=== PATIENT | female | born 1950 ===

== ENCOUNTER 2022-04-09 00:16 | Inpatient (IN) | payer OTHER ==
[~2022-04-09] VITALS: Ht 154.9 cm; Wt 54.0 kg
--- NOTE | 2022-04-09 00:30 | NUR ---
Patient BIB [facility] from home for generalized weakness x 3 days and c/o right sided kidney pain. Patient is a leukemia pt, had blood transfusion on last Monday at [facility].
[2022-04-09] MEDS ORDERED: IV NORMAL SALINE 1000 ML BAG IV ONE (01:00)
[2022-04-09] MEDS ORDERED: VANCOMYCIN IV 1,000 MG in IV DEXTROSE 5% 250 ML IV ONE (01:00)
[2022-04-09] MEDS ORDERED: PIPERACILLIN SODIUM/TAZOBACTAM 3.375 G in IV DEXTROSE 5% 50 ML IV ONE (01:00)
--- NOTE | 2022-04-09 01:13 | NUR ---
Kaityay done c/o tech.
--- NOTE | 2022-04-09 01:30 | NUR ---
Tara crawley) at bedside.
[2022-04-09 01:48] LABS: HEMATOCRIT 23.6 % (31.2-41.9); MEAN CORPUSCULAR VOLUME 86.6 fL (75.5-95.3); PLATELET COUNT (AUTO) 98 K/uL (179-408)
[2022-04-09 01:52] LABS: CARBON DIOXIDE 20 mmol/L (21-32); CHLORIDE 92 mmol/L (98-107); GLUCOSE 137 mg/dL (74-106); UREA NITROGEN, BLOOD 25 mg/dL (7-18)
[2022-04-09] MEDS ORDERED: PIPERACILLIN/TAZOBACTAM/D5W 50 ML IV ONE ×2 (01:53→05:39)
[2022-04-09] MEDS ORDERED: VANCOMYCIN IV 200 ML ONE (01:53)
[2022-04-09] MEDS ORDERED: IV NS 1000 ML 1,000 ML IV ONE (02:00)
[2022-04-09 02:01] LABS: ALANINE AMINOTRANSFERASE 172 U/L (14-59); ALKALINE PHOSPHATASE 709 U/L (50-136); ASPARTATE AMINOTRANSFERASE 113 U/L (15-37); BILIRUBIN,DIRECT 1.2 mg/dL (0.0-0.2); BILIRUBIN,TOTAL 2.2 mg/dL (0.2-1.0); TOTAL PROTEIN, SERUM 6.2 g/dL (6.4-8.2)
--- NOTE | 2022-04-09 02:12 | NUR ---
Ambulated to bathroom with assistance, steady gait.
--- NOTE | 2022-04-09 02:25 | NUR ---
Urine sent to lab.
[2022-04-09] MEDS ORDERED: CHOLECALCIFEROL 1,000 UNIT TABLET ONE (02:31)
[2022-04-09] MEDS: CHOLECALCIFEROL 1,000 UNIT TABLET PO SCH ×2 (02:32→09:35)
--- NOTE | 2022-04-09 02:40 | NUR ---
Tara (niece) left contact number [phone] and requested her for an update regarding to her aunt's condition.
--- NOTE | 2022-04-09 02:48 | NUR ---
Called [facility], spoke with Deidra.
--- NOTE | 2022-04-09 02:55 | NUR ---
US tech at bedside.
[2022-04-09 03:09] LABS: *BILIRUBIN,URIN NEGATIVE (NEGATIVE); *BLOOD, URINE NEGATIVE (NEGATIVE); *CLARITY,URINE CLEAR (CLEAR); *COLOR,URINE YELLOW (YELLOW); *KETONES,URINE NEGATIVE (NEGATIVE); *UROBILINOGEN,URINE 0.2 E.U./dl (NORMAL); LEUKOCYTE ESTERASE ,URINE NEGATIVE (NEGATIVE); NITRITE, URINE NEGATIVE (NEGATIVE); PH,URINE 5.5 (5.0-8.0); UGLUCOSE NEGATIVE (NEGATIVE)
--- NOTE | 2022-04-09 03:15 | NUR ---
Called [facility] exchange for [facility] panel.
--- NOTE | 2022-04-09 03:16 | NUR ---
COVID swab done and sent to lab.
[2022-04-09 03:25] LABS: BACTERIA,URINE FEW /HPF (NONE SEEN); SQUAMOUS EPITHELIAL CELL,UR FEW /HPF (NONE SEEN)
--- NOTE | 2022-04-09 03:30 | NUR ---
Called 3rd floor and warehouse person Madeline GUEVARA for room assignment. Patient will be placed at Room 319.
[2022-04-09] MEDS ORDERED: ONDANSETRON 4 MG/2 ML VIAL IV PRN (04:45)
[2022-04-09] MEDS ORDERED: MAGNESIUM HYDROXIDE 30 ML LIQUID UDC PO PRN (04:45)
[2022-04-09] MEDS ORDERED: REMEDY ESSENTIAL ZINC PASTE 113 GM TP PRN (04:45)
[2022-04-09] MEDS ORDERED: [UNRECOGNIZED DRUG - CODE] PO (04:47)
--- NOTE | 2022-04-09 04:48 | NUR ---
Pt states takes Inrebic, unknown dose, pt doesn't have a list and can't remember all her medications, needs follow up.
[2022-04-09 05:48] LABS: BAND % (MANUAL) 10 % (0-10); EOSINOPHILS % (MANUAL) 1 % (0-8); LYMPHOCYTES % (MANUAL) 4 % (20-40); METAMYELOCYTES % 9 % (0-1); MONOCYTES % (MANUAL) 2 % (2-10); MYELOCYTES % 6 % (0-0); NEUTROPHILS % (MANUAL) 68 % (42-75)
[2022-04-09] MEDS ORDERED: PIPERACILLIN SODIUM/TAZOBACTAM 3.375 G in IV DEXTROSE 5% 50 ML IV SCH (06:00)
[2022-04-09] MEDS ORDERED: ACETAMINOPHEN 325 MG TABLET ONE (06:38)
[2022-04-09] MEDS: ACETAMINOPHEN 325 MG TABLET PO PRN ×2 (06:39→22:21)
[2022-04-09 07:43] LABS: MEAN CORPUSCULAR VOLUME 85.9 fL (75.5-95.3)
--- NOTE | 2022-04-09 07:44 | NUR ---
Called to give report, nurse busy, they WCB.
[2022-04-09 07:45] LABS: MEAN CORPUSCULAR HEMOGLOBIN 29.1 uug (24.7-32.8); PLATELET COUNT (AUTO) 75 K/uL (179-408)
[2022-04-09 07:48] LABS: HEMATOCRIT 20.7 % (31.2-41.9)
[2022-04-09 07:54] LABS: CREATININE 0.9 mg/dL (0.6-1.3); PHOSPHOROUS 3.3 mg/dL (2.5-4.9); POTASSIUM 3.7 mmol/L (3.5-5.1)
--- NOTE | 2022-04-09 08:00 | NUR ---
PAOLA Osei, called back for report.
--- NOTE | 2022-04-09 08:15 | NUR ---
NS still infusing at 250/hr upon transfer to floor
[2022-04-09 08:25] VITALS: BP 137/54
--- NOTE | 2022-04-09 08:28 | NUR ---
Receive pt. from [facility]. vitals stable HR of 102, SBP 137/54, 98.7 RR18. 100%.
[2022-04-09] MEDS: IV NS 1000 ML 1,000 ML IV PRN ×2 (09:35→23:44)
[2022-04-09] MEDS ORDERED: LOSA100T31 PO (10:39)
[2022-04-09] MEDS: PIPERACILLIN SODIUM/TAZOBACTAM 3.375 G in IV DEXTROSE 5% 50 ML IV SCH ×3 (13:38→23:32)
[2022-04-09] MEDS ORDERED: LOSA25TA27 PO (14:11)
[2022-04-09] MEDS: VANCOMYCIN IV 750 MG in IV DEXTROSE 5% 250 ML IV SCH (14:11)
[2022-04-09 15:10] VITALS: BP 136/60
--- NOTE | 2022-04-09 20:00 | NUR ---
RECEIVED PATIENT AWAKE IN BED. A/O X4. DENIES ANY PAIN OR DISCOMFORT. NO RESP. DISTRESS NOTED. IVF INFUSING WELL. CALL LIGHT IN REACH. ALL NEEDS ATTENDED.
[2022-04-09 20:10] VITALS: BP 142/72
[2022-04-09 22:33] VITALS: BP 126/74
[2022-04-10] MEDS: VANCOMYCIN IV 750 MG in IV DEXTROSE 5% 250 ML IV SCH (00:41)
[2022-04-10] MEDS: PIPERACILLIN SODIUM/TAZOBACTAM 3.375 G in IV DEXTROSE 5% 50 ML IV SCH ×4 (05:22→23:09)
[2022-04-10 05:33] VITALS: BP 145/58
--- NOTE | 2022-04-10 08:00 | NUR ---
awake alert and oriented, states has diarrhea at 0300 this morning but none siince then, complaining of headache, medicated with tylenol as ordered prn, explained plan of care, verbalized understanding, safety measures maintained
[2022-04-10] MEDS: CHOLECALCIFEROL 1,000 UNIT TABLET PO SCH (08:24)
[2022-04-10] MEDS: ACETAMINOPHEN 325 MG TABLET PO PRN (08:24)
[2022-04-10 08:27] LABS: HEMATOCRIT 21.8 % (31.2-41.9); MEAN CORPUSCULAR HEMOGLOBIN 29.5 uug (24.7-32.8); MEAN CORPUSCULAR VOLUME 86.3 fL (75.5-95.3); PLATELET COUNT (AUTO) 84 K/uL (179-408)
[2022-04-10 08:58] LABS: THYROID STIMULATING HORMONE 5.145 mIU/mL (0.358-3.740)
[2022-04-10 10:02] LABS: CREATININE 0.9 mg/dL (0.6-1.3); PHOSPHOROUS 3.2 mg/dL (2.5-4.9); POTASSIUM 3.5 mmol/L (3.5-5.1)
[2022-04-10] MEDS ORDERED: LOPERAMIDE HCL 2 MG CAPSULE PO PRN (10:30)
[2022-04-10 11:00] VITALS: BP 121/57
[2022-04-10 11:29] LABS: BAND % (MANUAL) 7 % (0-10); EOSINOPHILS % (MANUAL) 2 % (0-8); LYMPHOCYTES % (MANUAL) 4 % (20-40); MONOCYTES % (MANUAL) 3 % (2-10); NEUTROPHILS % (MANUAL) 84 % (42-75)
[2022-04-10] MEDS: VANCOMYCIN IV 1,000 MG in IV DEXTROSE 5% 250 ML IV SCH (13:37)
[2022-04-10 16:00] VITALS: BP 140/65
--- NOTE | 2022-04-10 19:07 | NUR ---
no distress noted, all needs attended and met, call light within reach
--- NOTE | 2022-04-10 19:50 | NUR ---
Patient complained of lower back pain. Stated she had that pain prior and was known at the other hospital, but not aware what what was wrong with her kidney. ELEMENTARY SUBSTITUTE TEACHER Darrell made aware. ordered [place] 5/325mg every 6 hrs PRN for pain and recommend Low fat diet. Informed patient and states understanding. Will provide [place] per order.
[2022-04-10] MEDS ORDERED: HYDROCODONE/APAP 5-325MG TABLET PO PRN (20:00)
[2022-04-10 20:18] VITALS: BP 150/73
[2022-04-10] MEDS: IV NS 1000 ML 1,000 ML IV PRN (22:11)
[2022-04-11 00:06] VITALS: BP 123/66
[2022-04-11] MEDS: VANCOMYCIN IV 1,000 MG in IV DEXTROSE 5% 250 ML IV SCH ×2 (01:09→13:14)
[2022-04-11 04:18] VITALS: BP 145/80
[2022-04-11] MEDS: PIPERACILLIN SODIUM/TAZOBACTAM 3.375 G in IV DEXTROSE 5% 50 ML IV SCH ×2 (05:08→11:19)
--- NOTE | 2022-04-11 05:47 | NUR ---
Nu further complain of pain. Denies any SOB. IV antibiotics with no adverse effect noted. NSR on tele with HR of 99/min. Needs attended to and met. Safety measure maintained and call light within reached.
[2022-04-11 06:07] LABS: HEMATOCRIT 22.7 % (31.2-41.9); MEAN CORPUSCULAR HEMOGLOBIN 29.4 uug (24.7-32.8); MEAN CORPUSCULAR VOLUME 88.9 fL (75.5-95.3); PLATELET COUNT (AUTO) 83 K/uL (179-408)
[2022-04-11 06:19] LABS: CREATININE 0.9 mg/dL (0.6-1.3); MAGNESIUM 1.8 mg/dL (1.8-2.4); PHOSPHOROUS 3.1 mg/dL (2.5-4.9); POTASSIUM 3.6 mmol/L (3.5-5.1)
[2022-04-11] MEDS: CHOLECALCIFEROL 1,000 UNIT TABLET PO SCH (08:49)
--- NOTE | 2022-04-11 09:00 | NUR ---
PATIENT IS AWAKE ALERT AND ORIENTED DENIES PAIN OR DISCOMFORTS AT THIS TIME REMAIN ON ATB ORDERED WITH NO ADVERSE OR ALLERGIC REACTIONS AT THIS TIME CALL LIGHTS AND HER PERSONAL BELONGINGS ARE WITHIN EASY REACH AT THIS TIME WILL CONTINUE TO OBSERVE
[2022-04-11] MEDS: GLUCERNA SHAKE 237 ML CAN PO SCH ×2 (11:33→14:00)
--- NOTE | 2022-04-11 12:00 | NUR ---
PATIENT SEEN AND EXAMINED BY DR ZEINAB GREGORY WITH DISCHARGE PLANNING TODAY.PATIENT AWARE AND STATED THAT HER SISTER WILL BE ABLE TO PICK HER UP LATER THIS AFTERNOON.
[2022-04-11] MEDS ORDERED: CEFU500T66 PO (12:03)
[2022-04-11] MEDS ORDERED: DOXY-326 PO (12:03)
[2022-04-11 12:25] VITALS: BP 147/68
[2022-04-11 16:31] VITALS: BP 135/61
--- NOTE | 2022-04-11 17:30 | NUR ---
PATIENT DISCHARGED PICKED UP BY HER SISTER WILL IN SATISFACTORY CONDITION WITH ALL HER PERSONAL BELONGINGS PATIENT INSTRUCTED TO ULTRASOUND TECHNOLOGIST SONOGRAPHER HER MEDICATIONS FROM HER OWN PHARMACY IT WAS SENT ELECTRONICALLY AND TO ALSO FOLLOW UP WITH HER CONSTRUCTION PROJECT ADMINISTRATOR AT [facility] AND SHE EXPRESSED UNDERSTANDING.
[2022-04-12 03:06] LABS: HEPATITIS B SURFACE AG Negative (Negative)
[2022-04-12] MEDS ORDERED: LOSARTAN POTASSIUM 25 MG TABLET PO SCH (09:00)
== END 2022-04-11 17:30 | disposition home or self-care (01) | DRG 871 ==
LOC: ER 00:18 → TELE3 05:47 → TELE-TD3 06:13 → TELE3 06:29 → MEDSURG3 04-11 10:40
PROVIDERS: ADMIT Nurse Practitioner Acute Care; ATTEND Nurse Practitioner Acute Care
DX: A41.9 Sepsis, unspecified organism (principal); J15.9 Unspecified bacterial pneumonia; C95.90 Leukemia, unspecified not having achieved remission; E87.1 Hypo-osmolality and hyponatremia; D63.8 Anemia in other chronic diseases classified elsewhere; E86.1 Hypovolemia; R53.1 Weakness; Z20.822 Contact with and (suspected) exposure to COVID-19
CPT/HCPCS: 36415; 70030-TC; 71045; 73590; 83550; 83605; 83735; 84100; 84443; 84484; 84550; 85025; 85730; 86706; 86803; 86850; 86900; 86901; 87040; 87086; 87340; 93005; A4663; G0378; J2543; J3370; J7040; J7050